=== PATIENT | male | born 1985 | race Hispanic/Latino ===

== ENCOUNTER 2017-07-26 12:37 | Emergency (ER) | payer BC ==
[~2017-07-26] VITALS: Ht 180.3 cm; Wt 83.9 kg
[~2017-07-26 12:37] MED LIST: NORCO 5-325 TA1 EACH PO; TRAMADOL HCL50 MG PO
[2017-07-26] MEDS ORDERED: ZOFRAN ODT4 MG PO (14:09)
[2017-07-26] MEDS ORDERED: NAPROSYN500 MG PO (14:09)
[2017-07-26] MEDS ORDERED: LIDODERM1 EACH TOP (14:09)
== END 2017-07-26 14:53 | disposition home or self-care (01) ==
LOC: ED 12:37
DX: S06.0X0A Concussion without loss of consciousness, initial encounter (principal); S16.1XXA Strain of muscle, fascia and tendon at neck level, initial encounter; F17.200 Nicotine dependence, unspecified, uncomplicated; V86.59XA Driver of other special all-terrain or other off-road motor vehicle injured in nontraffic accident, initial encounter
CPT/HCPCS: 70450; 72125; 99284

== ENCOUNTER 2020-07-23 14:20 | Emergency (ER) | payer BC ==
[~2020-07-23] VITALS: Ht 180.3 cm; Wt 95.2 kg
[~2020-07-23 14:20] MED LIST changes: +LIDODERM1 EACH TOP; +NAPROSYN500 MG PO; +ZOFRAN ODT4 MG PO
[2020-07-23] MEDS ORDERED: PERCOCET 5-3251 EACH PO (16:57)
== END 2020-07-23 17:15 | disposition home or self-care (01) ==
LOC: ED 14:20
DX: T21.21XA Burn of second degree of chest wall, initial encounter (principal); X16.XXXA Contact with hot heating appliances, radiators and pipes, initial encounter; F17.200 Nicotine dependence, unspecified, uncomplicated
CPT/HCPCS: 16000; 90471; 90715; 99283-25; J1885; J2270; J7030